=== PATIENT | female | born 1935 | race Caucasian/White ===

== ENCOUNTER 2023-08-23 07:36 | Observation (INO) | payer OTHER ==
[2023-08-23] MEDS ORDERED: MAGNESIUM SULFATE 1 gm IVPB 1 GM/100 ML BAG IV ONE (07:56)
[2023-08-23] MEDS ORDERED: GLUCAGON 1 MG/VIAL ONE ×2 (07:56→09:48)
[2023-08-23] MEDS ORDERED: METOCLOPRAMIDE 10 MG/2mL INJ ONE (07:56)
--- NOTE | 2023-08-23 10:55 | EDPHYS ---
Physician Documentation [facility] Name: Pau Wan Age: 87 yrs Sex: Female : 1935 Arrival Date: 08/23/2023 Time: 07:36 Bed 8 Private MD: ED Physician Allan Triana HPI: 08/22 10:51 This 87 yrs old Female presents to ER via Ambulatory with complaints of Foreign Body In rn Throat - food. 10:51 The patient or guardian reports the patient has a suspected foreign body, of the rn throat. The reported likely foreign body is Pork chop. Onset: The symptoms/episode began/occurred yesterday. Current symptoms: foreign body sensation. The patient has experienced a previous episode. Patient reports eating pork chop yesterday for lunch, felt stuck, has not been able to tolerate p.o. since then. Has happened to her once before and has had acid problems in the past. No difficulty breathing. No bleeding.. Historical: - Allergies: 08:03 Codeine; ld1 - PMHx: 08:13 Hypercholesterolemia; Hypertensive disorder; ld1 - Immunization history:: Adult Immunizations up to date. - Infectious Disease History:: Denies. - Social history:: Smoking status: Patient denies any tobacco usage or history of. - Family history:: not pertinent. - Hospitalizations: : No recent hospitalization is reported. ROS: 10:51 Constitutional: Negative for fever, chills, and weight loss, Eyes: Negative for injury, rn pain, redness, and discharge, ENT: Negative for injury, pain, and discharge, Cardiovascular: Negative for chest pain, palpitations, and edema, Respiratory: Negative for shortness of breath, cough, wheezing, and pleuritic chest pain, Abdomen/GI: Positive for esophageal foreign body sensation with vomiting and inability to tolerate p.o. Exam: 10:51 Constitutional: This is a well developed, well nourished patient who is awake, alert, rn and in no acute distress. ENT: No stridor Cardiovascular: Regular rate and rhythm. No pulse deficits. Respiratory: Speaking full sentences, unlabored. No increased work of breathing, no retractions or nasal flaring. Abdomen/GI: No abdominal tenderness Vital Signs: 08:12 BP 160 / 78; Pulse 90; Resp 18; Temp 97.9(TE); Pulse Ox 94% on R/A; Weight 72.57 kg; ld1 Height 5 ft. 4 in. ; Pain 0/10; 09:17 BP 130 / 66; Pulse 81; Resp 18; Pulse Ox 95% on R/A; ld1 10:45 Pulse 100; Resp 18; Pulse Ox 100% on R/A; ld1 08:12 Body Mass Index 27.46 (72.57 kg, 162.56 cm) ld1 08:12 Pain Scale: Adult ld1 MDM: 07:39 Patient medically screened. rn 10:51 Data reviewed: vital signs, nurses notes, and as a result, I will admit patient. rn Counseling: I had a detailed discussion with the patient and/or guardian regarding the historical points, exam findings, and any diagnostic results supporting the discharge/admit diagnosis, the need for outpatient follow up, to return to the emergency department if symptoms worsen or persist or if there are any questions or concerns that arise at home. Response to treatment: There is no appreciated change of the patient's symptoms at this time. ED course: Patient given multiple medications here and repeated a second round. No resolution of symptoms. Still unable to tolerate p.o. Simple sips of water after throwing up and will not go down. Will admit to hospitalist service for GI consultation and foreign body removal.. 08/22 11:12 Order name: CBC with Automated Diff [facility] 08/22 11:12 Order name: Comprehensive Metabolic Panel [facility] 08/22 11:12 Order name: Protime (+INR) [facility] 08/22 11:12 Order name: PTT, Activated Partial Thromb [facility] 08/22 11:12 Order name: CONS Physician Consult [facility] 08/22 07:54 Order name: IV Start; Complete Time: 08:11 rn 08/22 09:36 Order name: PO challenge; Complete Time: 09:43 rn Administered Medications: 08:11 Drug: Glucagon IVP 1 mg IVP once Route: IVP; Site: left antecubital; ld1 08:11 Drug: metoCLOPramide IVP 10 mg IVP once; over 1 to 2 minutes Route: IVP; Site: left ld1 antecubital; 08:11 Drug: Magnesium Sulfate IVPB 1 grams IVPB once over 1 hrs Route: IVPB; Infused Over: 1 ld1 hrs; Site: left antecubital; 09:51 Drug: Glucagon IVP 1 mg IVP once Route: IVP; Site: left antecubital; ld1 Disposition Summary: 08/23/23 10:55 Hospitalization Ordered Notes: Hospitalization Status: Observation rn Provider: Jossue Rodriguez rn Location: Telemetry/MedSurg (observation) rn Condition: Stable rn Problem: new rn Symptoms: are unchanged rn Bed/Room Type: Standard rn Room Assignment: 205(08/23/23 11:16) bd Diagnosis - Food in esophagus - with impaction rn Forms: - Medication Reconciliation Form rn - SBAR form rn - Leadership Thank You Letter rn Signatures: Dispatcher [employer] EDDeisi Collado Roman, MD MD rn Sims, Lauren, RN RN ld1 Corrections: (The following items were deleted from the chart) 11:16 10:55 rn bd
--- NOTE | 2023-08-23 10:55 | ER ---
Nurse's Notes [facility] Name: Pau Wan Age: 87 yrs Sex: Female : 1935 Arrival Date: 08/23/2023 Time: 07:36 Bed 8 Private MD: Diagnosis: Food in esophagus-with impaction Presentation: 08/22 08:02 Chief complaint: Patient states: Food caught in lower esophagus since this morning. Pt ld1 denies pain, c/o discomfort. Coronavirus screen: At this time, the client does not indicate any symptoms associated with coronavirus-19. Ebola Screen: No symptoms or risks identified at this time. Initial Sepsis Screen: Does the patient meet any 2 criteria? No. Patient's initial sepsis screen is negative. Does the patient have a suspected source of infection? No. Patient's initial sepsis screen is negative. Risk Assessment: Do you want to hurt yourself or someone else? Patient reports no desire to harm self or others. Onset of symptoms was August 23, 2023. 08:02 Method Of Arrival: Ambulatory ld1 08:02 Acuity: LOLA 2 ld1 Triage Assessment: 08:03 General: Appears in no apparent distress. uncomfortable, Behavior is calm, cooperative, ld1 appropriate for age. Pain: Denies pain. EENT: No signs and/or symptoms were reported regarding the EENT system. EENT: No signs and/or symptoms were reported regarding the EENT system. Reports food caught in esophagus since this morning.. Neuro: Level of Consciousness is awake, alert, obeys commands, Oriented to person, place, time, situation. Cardiovascular: Capillary refill < 3 seconds Patient's skin is warm and dry. Respiratory: Airway is patent Respiratory effort is even, unlabored. GI: Abdomen is round non-distended. : No signs and/or symptoms were reported regarding the genitourinary system. Derm: No signs and/or symptoms reported regarding the dermatologic system. Musculoskeletal: No signs and/or symptoms reported regarding the musculoskeletal system. Historical: - Allergies: 08:03 Codeine; ld1 - PMHx: 08:13 Hypercholesterolemia; Hypertensive disorder; ld1 - Immunization history:: Adult Immunizations up to date. - Infectious Disease History:: Denies. - Social history:: Smoking status: Patient denies any tobacco usage or history of. - Family history:: not pertinent. - Hospitalizations: : No recent hospitalization is reported. Screenin:04 [facility] ED Fall Risk Assessment (Adult) History of falling in the last 3 months, ld1 including since admission No falls in past 3 months (0 pts). Abuse screen: Denies threats or abuse. Denies injuries from another. Nutritional screening: No deficits noted. Tuberculosis screening: No symptoms or risk factors identified. Assessment: 08:04 Reassessment: See triage assessment. ld1 09:45 Reassessment: Pt attempted PO challenge - water still being coughed back up. Pt denies ld1 pain, c/o discomfort when eating or drinking fluids. ERP aware. See MAR for orders. 10:45 Reassessment: PO challenge completed. Pt did not pass PO challenge. Notified ERP. ld1 Patient denies pain at this time. Patient states symptoms have not improved. Vital Signs: 08:12 BP 160 / 78; Pulse 90; Resp 18; Temp 97.9(TE); Pulse Ox 94% on R/A; Weight 72.57 kg; ld1 Height 5 ft. 4 in. ; Pain 0/10; 09:17 BP 130 / 66; Pulse 81; Resp 18; Pulse Ox 95% on R/A; ld1 10:45 Pulse 100; Resp 18; Pulse Ox 100% on R/A; ld1 08:12 Body Mass Index 27.46 (72.57 kg, 162.56 cm) ld1 08:12 Pain Scale: Adult ld1 ED Course: 07:38 Patient arrived in ED. im 07:39 Allan Triana MD is Attending Physician. rn 08:03 Triage completed. ld1 08:03 Arm band placed on right wrist. ld1 08:04 Patient has correct armband on for positive identification. Placed in gown. Bed in low ld1 position. Call light in reach. Side rails up X2. playground monitor on. Pulse ox on. NIBP on. Door closed. Noise minimized. Warm blanket given. 08:04 No provider procedures requiring assistance completed. ld1 08:11 Mayra Gordon, JORGE LUIS is Primary Nurse. ld1 08:16 Inserted saline lock: 22 gauge in left antecubital area, using aseptic technique. sm8 08:16 Missed attempt(s): 22 gauge in right antecubital area. Bleeding controlled, band aid sm8 applied, catheter tip intact. 10:54 Jossue Rodriguez MD is Hospitalizing Provider. rn Administered Medications: 08:11 Drug: Glucagon IVP 1 mg IVP once Route: IVP; Site: left antecubital; ld1 08:11 Drug: metoCLOPramide IVP 10 mg IVP once; over 1 to 2 minutes Route: IVP; Site: left ld1 antecubital; 08:11 Drug: Magnesium Sulfate IVPB 1 grams IVPB once over 1 hrs Route: IVPB; Infused Over: 1 ld1 hrs; Site: left antecubital; 09:51 Drug: Glucagon IVP 1 mg IVP once Route: IVP; Site: left antecubital; ld1 Medication: 08:04 VIS not applicable for this client. ld1 Outcome: 10:55 Decision to Hospitalize by Provider. rn 11:55 Patient left the ED. ld1 Signatures: Allan Triana MD MD rn GordonMayra RN RN ld1 Noa Espino Scarlett sm8 Corrections: (The following items were deleted from the chart) 08:16 08:04 Inserted saline lock: 22 gauge in left antecubital area, using aseptic technique. sm8 ld1
[2023-08-23] MEDS ORDERED: ONDANSETRON 4 MG/2 ML VIAL IV PRN (11:08)
[2023-08-23] MEDS ORDERED: ACETAMINOPHEN 500 MG TAB PO PRN (11:08)
--- NOTE | 2023-08-23 11:43 | P.HP ---
Patient History Date of Service: 08/23/23 Assessment and Plan - Advance Directives Does patient have a Living Will: No Does patient have a Durable POA for Healthcare: No
[2023-08-23 12:03] VITALS: BMI 28.7
[2023-08-23 12:12] LABS: Absolute Basophils 0.1 K/uL (0-0.5); Absolute Eosinophils 0.1 K/uL (0-0.5); Absolute Lymphocytes (CBC) 1.2 K/uL (0.7-4.9); Absolute Monocytes 0.8 K/uL (0.1-1.3); Absolute Neutrophil 15.8 K/uL (1.8-8.0); Basophils % 0.3 % (0-1.3); Eosinophils % 0.3 % (0-4.4); Hematocrit 41.1 % (36.0-45.0); Hemoglobin 13.6 g/dL (12.0-15.0); Lymphocytes % 6.5 % (15.3-44.8); MCH 31.3 pg (27.0-35.0); MCHC 33.1 g/dL (32.0-36.0); MCV 94.6 fL (80-100); MPV 7.5 fL (7.6-11.3); Monocytes % 4.6 % (3.3-12.3); Neutrophils % 88.3 % (41.7-73.7); Nucleated Red Blood Cells % 0.1 % (0-0); Platelets 215 thou/uL (152-406); RBC Red Blood Cell Count 4.35 M/uL (3.86-4.86); Red Cell Distribution Width 13.9 % (12.1-15.2)
[2023-08-23] MEDS ORDERED: propofoL 200 MG/20 ML VIAL IV ONE ×3 (12:39→12:41)
[2023-08-23] MEDS ORDERED: Phenylephrine HCl 10 MG/ML 1 ML VIAL ONE (12:39)
[2023-08-23] MEDS ORDERED: LIDOCAINE 1% MPF 5 ML VIAL ONE (12:40)
[2023-08-23 12:51] LABS: Band Neutrophils 2 % (0-1); Differential Total Cells Count 100; Lymphocytes 5 % (15-42); Monocytes 3 % (0-10); Segmented Neutrophils 89 % (40-80)
[2023-08-23 12:52] LABS: Blood Morphology Comment NOT SEEN (NOT SEEN); Platelet Estimate ADEQ
[2023-08-23] MEDS: Ringers Lactate 1,000 ML IV ONE (13:24)
[2023-08-23] MEDS ORDERED: SODIUM CHLORIDE 0.9% 10ML INJ IV PRN (13:43)
--- NOTE | 2023-08-23 13:49 | P.HP ---
Certification for Inpatient Patient admitted to: Observation With expected LOS: <2 Midnights Patient will require the following post-hospital care: None Practitioner: I am a practitioner with admitting privileges, knowledge of patient current condition, hospital course, and medical plan of care. Services: Services provided to patient in accordance with Admission requirements found in Title 42 Section 412.3 of the Code of Federal Regulations Patient History Date of Service: 08/23/23 Reason for admission: Esophageal obstruction secondary to food bolus History of Present Illness: Patient is an 87-year-old female who developed an esophageal obstruction by a food impaction. Patient had pork chop and cabbage last night. Afterwards, patient states she was having a hard time swallowing the food all the way down. Whenever she drinks her liquids, she was having persistent nausea and vomiting. Whenever she swallowed her spit, she was having to cough up her spit. Patient denies any significant medical problems except for hypertension and dyslipidemia. Patient denies any cardiac disease. At this time patient will be admitted to the hospital with gastroenterology consultation. Patient will get an EGD with removal of the food impaction. Allergies codeine Adverse Reaction (Verified 08/23/23 13:23) Nausea/Vomiting Home Medications: Aspirin [Aspirin EC] 81 mg PO DAILY 08/23/23 Cholecalciferol (Vitamin D3) [Vitamin D 1000 Iu Tab*] 2,000 iu PO DAILY 08/23/23 Simvastatin 10 mg PO DAILY 08/23/23 hydroCHLOROthiazide [Hydrochlorothiazide] 25 mg PO DAILY 08/23/23 - Past Medical/Surgical History Has patient received pneumonia vaccine in the past: Yes -: Hypertension -: Dyslipidemia -: Cholecystectomy -: Hysterectomy -: Tonsillectomy -: Appenendectomy -: Colon sx - Family History Father Family History: Reviewed- Non-Contributory - Social History Smoking Status: Never smoker Alcohol use: No CD- Drugs: No Caffeine use: No Place of Residence: Home Review of Systems 10-point ROS is otherwise unremarkable Physical Examination - Vital Signs Temperature: 97.1 F Blood Pressure: 131/64 Pulse: 100 Respirations: 18 Pulse Ox (%): 98 - Physical Exam General: Alert, In no apparent distress, Oriented x3 HEENT: Atraumatic, PERRLA, Mucous membr. moist/pink, EOMI, Sclerae nonicteric Neck: Supple, 2+ carotid pulse no bruit, No LAD, Without JVD or thyroid abnormality Respiratory: Clear to auscultation bilaterally, Normal air movement Cardiovascular: Regular rate/rhythm, Normal S1 S2, No murmurs Gastrointestinal: Normal bowel sounds, Soft and benign, Non-distended, No tenderness Musculoskeletal: No clubbing, No swelling, No tenderness Integumentary: No rashes Neurological: Normal gait, Normal speech, Normal strength at 5/5 x4 extr, Normal tone, Sensation intact, Cranial nerves 3-12 intact, Normal affect Lymphatics: No axilla or inguinal lymphadenopathy Assessment & Plan - Problems (Diagnosis) (1) Esophageal obstruction due to food impaction Current Visit: Yes Status: Acute (2) Hypertension Current Visit: Yes Status: Acute (3) Dyslipidemia Current Visit: Yes Status: Acute - Plan Plan: 1. N.p.o. 2. GI consultation for EGD with removal of food impaction 3. IV hydration 4. PPI 5. Monitor hemodynamics 6. GI and DVT prophylaxis Discharge Plan: Home Plan to discharge in: 24 Hours - Advance Directives Does patient have a Living Will: No Does patient have a Durable POA for Healthcare: No - Code Status/Comfort Care Code Status Assessed: Yes Code Status: Full Code Critical Care: No Time Spent Managing PTS Care (In Minutes): 45
[2023-08-23 14:25] VITALS: O2SAT 96
[2023-08-23] MEDS: NA CHLORIDE 0.9% 1,000 ML IV SCH (14:54)
[2023-08-23 14:56] LABS: PT Prothrombin Time 11.9 SECONDS (9.5-12.5); PTT, Activated Partial Thromb 33.5 SECONDS (24.3-36.9); Protime INR 1.08
[2023-08-23 15:08] LABS: Albumin 3.6 g/dL (3.4-5.0); Albumin/Globulin Ratio 1.4 (1.1-1.8); Anion Gap 8.6 mEq/L (5.0-15.0); Bilirubin Total 0.7 mg/dL (0.2-1.0); Globulin 2.5 g/dL (2.3-3.5); Potassium 3.6 mEq/L (3.5-5.1); Protein, Total 6.1 g/dL (6.4-8.2)
[2023-08-23] MEDS: PANTOPRAZOLE 40 MG INJ IVP SCH (21:29)
--- NOTE | 2023-08-24 07:29 | P.PN ---
Subjective Date of Service: 08/24/23 Chief Complaint: Esophageal obstruction secondary to food bolus 87-year-old female who developed an esophageal obstruction by a food impaction. GI consult - Physical Exam General: Alert, In no apparent distress, Oriented x3 HEENT: Atraumatic, PERRLA, Mucous membr. moist/pink, EOMI, Sclerae nonicteric Neck: Supple, 2+ carotid pulse no bruit, No LAD, Without JVD or thyroid abnormality Respiratory: Clear to auscultation bilaterally, Normal air movement Cardiovascular: Regular rate/rhythm, Normal S1 S2, No murmurs Gastrointestinal: Normal bowel sounds, Soft and benign, Non-distended, No tenderness Musculoskeletal: No clubbing, No swelling, No tenderness Integumentary: No rashes Neurological: Normal gait, Normal speech, Normal strength at 5/5 x4 extr, Normal tone, Sensation intact, Cranial nerves 3-12 intact, Normal affect Lymphatics: No axilla or inguinal lymphadenopathy Review of Systems per HPI Physical Examination - Vital Signs Temperature: 99.2 F Blood Pressure: 120/56 Pulse: 85 Respirations: 15 Pulse Ox (%): 94 Assessment And Plan - Plan Assessment & Plan - Problems (Diagnosis) (1) Esophageal obstruction due to food impaction Current Visit: Yes Status: Acute (2) Hypertension Current Visit: Yes Status: Acute (3) Dyslipidemia Current Visit: Yes Status: Acute - Plan Plan: 1. N.p.o. 2. GI consultation for EGD with removal of food impaction 3. IV hydration 4. PPI 5. Monitor hemodynamics 6. GI and DVT prophylaxis Discharge Plan: Home Plan to discharge in: 24 Hours - Advance Directives Does patient have a Living Will: No Does patient have a Durable POA for Healthcare: No Discharge Plan: Home Critical Care: No Time Spent Managing PTS Care (In Minutes): 35
--- NOTE | 2023-08-24 07:34 | P.DS ---
Admission Date: 08/23/23 Discharge Date: 08/24/23 Disposition: ROUTINE DISCHARGE Discharge Condition: GOOD Reason for Admission: Esophageal obstruction secondary to food bolus Brief History of Present Illness: Patient is an 87-year-old female who developed an esophageal obstruction by a food impaction. Patient had pork chop and cabbage last night. Afterwards, patient states she was having a hard time swallowing the food all the way down. Whenever she drinks her liquids, she was having persistent nausea and vomiting. Whenever she swallowed her spit, she was having to cough up her spit. Patient denies any significant medical problems except for hypertension and dyslipidemia. Patient denies any cardiac disease. At this time patient will be admitted to the hospital with gastroenterology consultation. Patient will get an EGD with removal of the food impaction. - Physical Exam General: Alert, In no apparent distress, Oriented x3 HEENT: Atraumatic, PERRLA, Mucous membr. moist/pink, EOMI, Sclerae nonicteric Neck: Supple, 2+ carotid pulse no bruit, No LAD, Without JVD or thyroid abnormality Respiratory: Clear to auscultation bilaterally, Normal air movement Cardiovascular: Regular rate/rhythm, Normal S1 S2, No murmurs Gastrointestinal: Normal bowel sounds, Soft and benign, Non-distended, No tenderness Musculoskeletal: No clubbing, No swelling, No tenderness Integumentary: No rashes Neurological: Normal gait, Normal speech, Normal strength at 5/5 x4 extr, Normal tone, Sensation intact, Cranial nerves 3-12 intact, Normal affect Lymphatics: No axilla or inguinal lymphadenopathy Hospital Course: Patient is an 87-year-old female who developed an esophageal obstruction by a food impaction. Patient had pork chop and cabbage last night. Afterwards, patient states she was having a hard time swallowing the food all the way down. GI was consulted to evaluate patient, patient is alert and oriented x 3, no respiratory distress, no drooling, n.p.o., plan to discharge when cleared by gastroenterology, she is status post EGD for foreign body removal, esophageal dilation by Dr. Higgisn, Assessment plan Esophageal obstruction due to food impaction, GI consulted for EGD evaluation was treated with esophageal dilation, foreign body removal for EGD noted to have a hiatal hernia-instructed to eat soft foods, chew well, Follow-up with GI after discharge Incidental finding of hiatal hernia Continue home medicines as previously prescribed GOAL: Clear understanding of disease process INSTRUCTIONS: Physician Discharge Instructions: -Follow-up with PCP in 1 to 2 weeks -Please call Dr. Rodriguez at [phone] if any questions regarding hospital stay -Please call nursing station at [phone] if any nursing or medication questions -Return to the emergency room if symptoms worsen Diet: ADA, low sodium Activity: Fall precautions Vital Signs/Physical Exam: Temp Pulse Resp BP Pulse Ox 99.2 F 85 15 120/56 L 94 08/24/23 07:29 08/24/23 07:29 08/24/23 07:29 08/24/23 07:29 08/24/23 07:29 Laboratory Data at Discharge: WBC 17.90 thou/uL (4.3-10.9) H 08/23/23 12:02 Hgb 13.6 g/dL (12.0-15.0) 08/23/23 12:02 Hct 41.1 % (36.0-45.0) 08/23/23 12:02 Plt Count 215 thou/uL (152-406) 08/23/23 12:02 PT 11.9 SECONDS (9.5-12.5) 08/23/23 14:35 INR 1.08 08/23/23 14:35 APTT 33.5 SECONDS (24.3-36.9) 08/23/23 14:35 Sodium 141 mEq/L (136-145) 08/23/23 14:35 Potassium 3.6 mEq/L (3.5-5.1) 08/23/23 14:35 BUN 10 mg/dL (7-18) 08/23/23 14:35 Creatinine 0.60 mg/dL (0.55-1.02) 08/23/23 14:35 Glucose 92 mg/dL (74-106) 08/23/23 14:35 Total Bilirubin 0.7 mg/dL (0.2-1.0) 08/23/23 14:35 AST 14 U/L (15-37) L 08/23/23 14:35 ALT 23 U/L (13-56) 08/23/23 14:35 Alkaline Phosphatase 69 U/L (45-117) 08/23/23 14:35 Home Medications: Aspirin [Aspirin EC] 81 mg PO DAILY 08/23/23 Cholecalciferol (Vitamin D3) [Vitamin D 1000 Iu Tab*] 2,000 iu PO DAILY 08/23/23 Simvastatin 10 mg PO DAILY 08/23/23 hydroCHLOROthiazide [Hydrochlorothiazide] 25 mg PO DAILY 08/23/23 Diet: Soft diet Activity: Fall precautions Followup: Vance Pedro DO [Primary Care Provider] - Dallas Orourke MD [OUTSIDE PHYSICIAN] - Time spent managing pt's care (in minutes): 55
[2023-08-24 08:09] VITALS: BP 137/65; TEMP 98.6
== END 2023-08-24 09:59 | disposition home or self-care (01) ==
LOC: ER 07:36 → 2ND 11:08
PROVIDERS: ADMIT Hospitalist; ATTEND Hospitalist
PROC: 0DB38ZX Excision of Lower Esophagus, Via Natural or Artificial Opening Endoscopic, Diagnostic (ICD-10-PCS; 2023-08-23)
PROC: 0DB78ZX Excision of Stomach, Pylorus, Via Natural or Artificial Opening Endoscopic, Diagnostic (ICD-10-PCS; 2023-08-23)
PROC: 0DC28ZZ Extirpation of Matter from Middle Esophagus, Via Natural or Artificial Opening Endoscopic (ICD-10-PCS; principal; 2023-08-23 13:30)
DX: T18.128A Food in esophagus causing other injury, initial encounter (principal); I10 Essential (primary) hypertension; E78.5 Hyperlipidemia, unspecified; K44.9 Diaphragmatic hernia without obstruction or gangrene; K22.10 Ulcer of esophagus without bleeding; K29.50 Unspecified chronic gastritis without bleeding; E78.00 Pure hypercholesterolemia, unspecified
CPT/HCPCS: 85025; 36415; 88312; 85610; 88305; 85730; 80053; 96375; 96374; 99284; 43247; 43239; J1610 ×2; J3475; J2704 ×2; J2765; J2001; C9113 ×2; G0378 ×4; J7120; J7030; C1726; J2371

== ENCOUNTER 2024-01-15 16:41 | Inpatient (IN) | payer OTHER ==
[2024-01-15] MEDS ORDERED: ONDANSETRON 4 MG/2 ML VIAL ONE (18:28)
[2024-01-15] MEDS ORDERED: FAMOTIDINE 20 MG/2 ML VIAL IV ONE (18:28)
--- NOTE | 2024-01-15 18:44 | RAD REPORT ---
Procedure: Chest Single View HISTORY: Chest pain COMPARISON: none FINDINGS: The lungs appear clear of acute infiltrate. No significant pleural effusion noted. The heart is normal size. IMPRESSION: No acute abnormality is displayed.
[2024-01-15 18:48] LABS: Absolute Basophils 0.1 K/uL (0-0.5); Absolute Lymphocytes (CBC) 0.7 K/uL (0.7-4.9); Absolute Monocytes 0.7 K/uL (0.1-1.3); Absolute Neutrophil 13.3 K/uL (1.8-8.0); Basophils % 0.4 % (0-1.3); Eosinophils % 0.1 % (0-4.4); Hematocrit 38.7 % (36.0-45.0); Lymphocytes % 4.4 % (15.3-44.8); MCHC 33.7 g/dL (32.0-36.0); MCV 91.9 fL (80-100); MPV 6.6 fL (7.6-11.3); Monocytes % 4.9 % (3.3-12.3); Neutrophils % 90.2 % (41.7-73.7); Platelets 279 thou/uL (152-406); RBC Red Blood Cell Count 4.21 M/uL (3.86-4.86); Red Cell Distribution Width 13.4 % (12.1-15.2)
[2024-01-15 19:03] LABS: Specific Gravity 1.019 (1.005-1.030); Sqamous Epithelial None Seen /HPF (None Seen); Urine Bacteria None Seen /HPF (<20); Urine Bilirubin NEGATIVE (Negative); Urine Blood 3+ (Negative); Urine Clarity Extremely Turbid (Clear); Urine Color Light-Yellow (Yellow); Urine Crystals Unidentified Few /HPF (None Seen); Urine Culture Reflex Order REFLEXED; Urine Glucose NEGATIVE (Negative); Urine Ketones 2+ (Negative); Urine Microscopic Reflex YN ORDER UMIC; Urine Mucus Slight /HPF (None Seen); Urine Nitrite NEGATIVE (Negative); Urine Protein 1+ (Negative); Urine RBC >50 /HPF (None Seen); Urine Urobilinogen Normal (Normal); Urine WBC >50 /HPF (<5); Urine WBC Clump Rare /HPF (None Seen); Urine Yeast (Budding) Few /HPF (None Seen)
[2024-01-15 19:12] LABS: Albumin 3.6 g/dL (3.4-5.0); Albumin/Globulin Ratio 1.2 (1.1-1.8); Anion Gap 11.5 mEq/L (5.0-15.0); Bilirubin Direct 0.2 mg/dL (0-0.2); Bilirubin Indirect, Calculated 0.7 mg/dL (0.2-0.8); Bilirubin Total 0.9 mg/dL (0.2-1.0); Globulin 2.9 g/dL (2.3-3.5); Magnesium 1.9 mg/dL (1.6-2.4); Potassium 3.5 mEq/L (3.5-5.1); Protein, Total 6.5 g/dL (6.4-8.2); Troponin High Sensitivity 4.1 pg/mL (<58.9)
--- NOTE | 2024-01-15 20:02 | RAD REPORT ---
EXAMINATION: CT ABDOMEN AND PELVIS WITH CONTRAST CLINICAL INDICATION: Abdominal pain TECHNIQUE: CT abdomen and pelvis was performed, after the administration of 100 cc Isovue-300.. Sagit ivone and coronal reconstructions were obtained. One or more of the following dose reduction techniques were used: Automated exposure control, adjustment of the mA and kV according to patient si ze, and iterative reconstruction. Unless otherwise specified, incidental findings do not require dedicated imaging follow-up. [id number]. Oral contrast was not given which limits evaluation of bowel and appendix. COMPARISON: none FINDINGS: Mild fatty infiltration. Cholecystectomy. Small hiatal hernia. Thickening of the wall of the distal esophagus. The spleen, pancreas, adrenals and kidneys unremarkable Hysterectomy. No adnexal mass. Small supra umbilical hernia contains fat. Right inguinal hernia contains small bowel. Diverticula stem from the colon. No evidence of diverticulitis.: IMPRESSION: Thickening of the wall of the esophagus may indicate inflammation. Right inguinal hernia contains nondilated small bowel
--- NOTE | 2024-01-15 20:29 | ER ---
Nurse's Notes [facility] Name: Pau Wan Age: 88 yrs Sex: Female : 1935 Arrival Date: 01/15/2024 Time: 16:41 Bed 18 Private MD: Diagnosis: UTI/ Urinary tract infection, site not specified;Nausea with vomiting, unspecified;Hypo-osmolality and hyponatremia Presentation: 01/14 17:12 Chief complaint: Patient states: "I went to my doctor and they said I have a UTI but aa5 I've been vomiting now and I can't keep anything down". 17:12 Coronavirus screen: vomiting. Ebola Screen: Patient denies travel to an Ebola-affected [facility] area in the 21 days before illness onset. Initial Sepsis Screen: Does the patient meet any 2 criteria? No. Patient's initial sepsis screen is negative. Does the patient have a suspected source of infection? No. Patient's initial sepsis screen is negative. Risk Assessment: Do you want to hurt yourself or someone else? Patient reports no desire to harm self or others. Onset of symptoms was January 15, 2024. 17:12 Acuity: LOLA 3 aa5 17:12 Method Of Arrival: Ambulatory aa5 Triage Assessment: 18:52 General: Appears in no apparent distress. comfortable, Behavior is calm, cooperative. cm10 Pain: Denies pain. Neuro: No deficits noted. Level of Consciousness is awake, alert, obeys commands, Oriented to person, place, time, situation, Appropriate for age. Respiratory: No deficits noted. Airway is patent Respiratory effort is even, unlabored, Respiratory pattern is regular, symmetrical. GI: Reports nausea, vomiting. Historical: - Allergies: 17:12 Codeine; aa5 - PMHx: 17:12 Hypercholesterolemia; Hypertensive disorder; aa5 - Immunization history:: Adult Immunizations unknown. - Infectious Disease History:: Denies. - Social history:: Smoking status: Patient denies any tobacco usage or history of. Screenin:53 [facility] ED Fall Risk Assessment (Adult) History of falling in the last 3 months, cm10 including since admission No falls in past 3 months (0 pts) Confusion or Disorientation No (0 pts) Intoxicated or Sedated No (0 pts) Impaired Gait No (0 pts) Mobility Assist Device Used No (0 pt) Altered Elimination No (0 pt) Score/Fall Risk Level 0 - 2 = Low Risk Oriented to surroundings, Maintained a safe environment, Hourly rounding (assess needs \\T\\ fall precautionary measures) done. Abuse screen: Denies threats or abuse. Denies injuries from another. Nutritional screening: No deficits noted. Tuberculosis screening: No symptoms or risk factors identified. Vital Signs: 17:12 BP 165 / 83; Pulse 87; Resp 20 S; Temp 97.5(TE); Pulse Ox 95% on R/A; Weight 72.57 kg aa5 (R); Height 5 ft. 2 in. (R); 19:00 BP 145 / 66; Pulse 64; Resp 18; Pulse Ox 97% ; cp4 20:00 BP 140 / 69; Pulse 69; Resp 18; Pulse Ox 96% ; cp4 21:40 BP 149 / 67; Pulse 68; Resp 18; Pulse Ox 98% ; cp4 17:12 Body Mass Index 29.26 (72.57 kg, 157.48 cm) aa5 ED Course: 16:43 Patient arrived in ED. ra3 17:05 Adelso Cooney PA is PHCP. cp 17:05 Adelso Davis MD is Attending Physician. cp 17:12 Arm band placed on. aa5 17:14 Triage completed. aa5 18:21 Padmini Regalado, RN is Primary Nurse. cm10 18:26 XRAY Chest (1 view) In Process Unspecified. EDMS 18:43 Urinalysis w/ reflexes Sent. cm10 18:43 Lipase Sent. cm10 18:43 Basic Metabolic Panel Sent. cm10 18:43 CBC with Diff Sent. cm10 18:43 LFT's Sent. cm10 18:43 Magnesium Sent. cm10 18:43 Troponin HS Sent. cm10 18:43 Initial lab(s) drawn, by ri, sent to lab. Urine collected: clean catch specimen, cm10 cloudy, EKG done, by ED staff, reviewed by Adelso WINTERS. Inserted saline lock: 20 gauge in right antecubital area, using aseptic technique. Blood collected. Flushed with 10 mL NS. 18:53 Patient has correct armband on for positive identification. Placed in gown. Bed in low cm10 position. Call light in reach. Side rails up X2. Client placed on continuous cardiac and pulse oximetry monitoring. NIBP monitoring applied. dealer analyst on. 19:33 CT Abd/Pelvis - IV Contrast Only In Process Unspecified. EDMS 20:28 Price Melendez MD is Hospitalizing Provider. cp 20:47 First set of blood cultures drawn by me. cp4 21:10 Second set of blood cultures drawn by me. cp4 22:17 No provider procedures requiring assistance completed. Patient admitted, IV remains in cp4 place. 22:18 Provided Education on: admission. cp4 Administered Medications: 18:43 Drug: Ondansetron IVP 4 mg IVP once; over 2 minutes Route: IVP; Site: right antecubital;cm10 21:48 Follow up: Response: No adverse reaction cp4 18:43 Drug: Famotidine IVP 20 mg IVP once; dilute with 10 mL 0.9% NaCl; give over 2 minutes cm10 Route: IVP; Site: right antecubital; 21:48 Follow up: Response: No adverse reaction cp4 21:48 Drug: NS 0.9% IV 500 ml 500 ml IV at 1 bolus once; to be given as a bolus over 30 cp4 minutes Volume: 500 ml; Route: IV; Rate: 1 bolus; Site: right antecubital; 22:47 Follow up: Response: No adverse reaction; IV Status: Completed infusion cp4 21:48 Drug: Rocephin IV 1 grams IV at calculated rate once; Given slow IV push per pharmacy cp4 instructions Route: IV; Rate: calculated rate; Site: right antecubital; 21:58 Follow up: IV Status: Completed infusion cp4 Medication: 22:18 VIS not applicable for this client. cp4 Outcome: 20:29 Decision to Hospitalize by Provider. cp 22:47 Admitted to Med/surg accompanied by tech, via wheelchair, with chart, cp4 22:47 Condition: stable 22:47 Instructed on the need for admit, 22:48 Patient left the ED. cp4 Signatures: Dispatcher [employer] EDIN Laury Barbre RN RN aa5 Adelso Cooney PA PA Padmini Valladares RN RN cm10 Shirin Sampson cp4 Julianne Hardy ra3 Corrections: (The following items were deleted from the chart) 17:15 17:12 BP 165 / 83; Pulse 87bpm; Resp 20bpm; Spontaneous; Pulse Ox 95% RA; aa5 aa5
--- NOTE | 2024-01-15 20:29 | EDPHYS ---
Physician Documentation [facility] Name: Pau Wan Age: 88 yrs Sex: Female : 1935 Arrival Date: 01/15/2024 Time: 16:41 Bed 18 Private MD: ED Physician Adelso Davis HPI: 01/14 17:15 This 88 yrs old Female presents to ER via Ambulatory with complaints of Vomiting. cp 17:15 The patient presents to the emergency department with vomiting, that is continuous, cp described as bilious, abdominal pain. 17:15 Onset: The symptoms/episode began/occurred today. Possible causes: diagnosed with uti cp and office of pcp today. Associated signs and symptoms: Pertinent negatives: diarrhea, fever, GI bleeding. Severity of symptoms: in the emergency department the symptoms are unchanged despite home interventions. Historical: - Allergies: 17:12 Codeine; aa5 - PMHx: 17:12 Hypercholesterolemia; Hypertensive disorder; aa5 - Immunization history:: Adult Immunizations unknown. - Infectious Disease History:: Denies. - Social history:: Smoking status: Patient denies any tobacco usage or history of. ROS: 17:20 Constitutional: Negative for body aches, chills, fever, cp 17:20 Eyes: Negative for injury, pain, redness, and discharge, cp 17:20 Cardiovascular: Negative for chest pain, palpitations, 17:20 Respiratory: Negative for cough, shortness of breath, wheezing, 17:20 Abdomen/GI: Positive for abdominal pain, nausea, vomiting, Negative for diarrhea, constipation, hematemesis, black/tarry stool, rectal bleeding, 17:20 Back: Negative for pain at rest, pain with movement, 17:20 Neuro: Negative for altered mental status, dizziness, headache, numbness, weakness, 17:20 All other systems are negative, Exam: 17:25 Constitutional: The patient appears in no acute distress, alert, awake, cp non-diaphoretic, non-toxic, well developed, well nourished, uncomfortable, 17:25 Head/Face: Normocephalic, atraumatic. cp 17:25 Eyes: Periorbital structures: appear normal, Conjunctiva: normal, no exudate, no injection, Sclera: no appreciated abnormality, Lids and lashes: appear normal, bilaterally, 17:25 ENT: External ear(s): are unremarkable, Nose: is normal, Mouth: Lips: moist, Oral mucosa: pink and intact, moist, Posterior pharynx: is normal, airway is patent, no erythema, no exudate, 17:25 Chest/axilla: Inspection: normal, Palpation: is normal, no crepitus, no tenderness, 17:25 Cardiovascular: Rate: normal, Rhythm: regular, Edema: is not appreciated, 17:25 Respiratory: the patient does not display signs of respiratory distress, Respirations: normal, no use of accessory muscles, no retractions, labored breathing, is not present, Breath sounds: are clear throughout, no decreased breath sounds, no stridor, no wheezing, 17:25 Abdomen/GI: Inspection: abdomen appears normal, Bowel sounds: active, all quadrants, Palpation: soft, in all quadrants, mild abdominal tenderness, in the epigastric area, right upper quadrant and left upper quadrant, rebound tenderness, is not appreciated, involuntary guarding, is not appreciated, 17:25 Back: CVA tenderness, is absent, 17:25 Neuro: Orientation: to person, place \T\ time. Mentation: is normal, Motor: moves all fours, strength is normal, 18:47 ECG was reviewed by the Attending Physician. Vital Signs: 17:12 BP 165 / 83; Pulse 87; Resp 20 S; Temp 97.5(TE); Pulse Ox 95% on R/A; Weight 72.57 kg aa5 (R); Height 5 ft. 2 in. (R); 19:00 BP 145 / 66; Pulse 64; Resp 18; Pulse Ox 97% ; cp4 20:00 BP 140 / 69; Pulse 69; Resp 18; Pulse Ox 96% ; cp4 21:40 BP 149 / 67; Pulse 68; Resp 18; Pulse Ox 98% ; cp4 17:12 Body Mass Index 29.26 (72.57 kg, 157.48 cm) aa5 MDM: 18:05 Medical Screening Exam initiated joni 20:33 Data reviewed: vital signs, nurses notes, lab test result(s), EKG, radiologic studies, cp CT scan, and as a result, I will admit patient. 20:33 Differential diagnosis: gastritis, cholecystitis, appendicitis, diverticulitis, viral cp gastroenteritis, gastroenteritis, sepsis. Management of patient was discussed with the following: Hospitalist: DR Melendez will admit after discussion. I considered the following discharge prescriptions or medication management in the emergency department Medications were administered in the Emergency Department. See MAR. Independent interpretation of the following test(s) in the Emergency Department EKG: See my EKG interpretation above. Care significantly affected by the following chronic conditions: Hypertension. Counseling: I had a detailed discussion with the patient and/or guardian regarding the historical points, exam findings, and any diagnostic results supporting the discharge/admit diagnosis, lab results, radiology results. Response to treatment: the patient's symptoms have mildly improved after treatment. 01/14 17:13 Order name: Basic Metabolic Panel; Complete Time: 20:10 01/14 20:10 Interpretation: Normal except: NA 127; CL 95; GLUC 129; BUN 6; GFR 82. 01/14 17:13 Order name: CBC with Diff; Complete Time: 18:57 01/14 17:13 Order name: LFT's; Complete Time: 20:10 01/14 17:13 Order name: Magnesium; Complete Time: 20:10 01/14 17:13 Order name: Troponin HS; Complete Time: 20:10 01/14 17:13 Order name: Lipase; Complete Time: 20:10 01/14 18:13 Order name: Urinalysis w/ reflexes; Complete Time: 20:10 01/14 20:11 Interpretation: Normal except: [facility] Extremely Turbid; UKET 2+; UBLD 3+; UPROT 1+; UESTR cp 250; UWBC >50; URBC >50; BYST Few. 01/14 19:09 Order name: Urine Culture EDMT 01/14 20:17 Order name: Lactate w/ 2H reflex if indic. 01/14 20:17 Order name: Blood Culture Adult (2) 01/14 20:54 Order name: Urinalysis w/ reflexes EDMT 01/14 20:54 Order name: CBC with Automated Diff EDMT 01/14 20:54 Order name: CBC with Automated Diff EDMT 01/14 20:54 Order name: Comprehensive Metabolic Panel EDMT 01/14 20:54 Order name: Comprehensive Metabolic Panel [facility] 01/14 17:13 Order name: XRAY Chest (1 view); Complete Time: 18:57 01/14 18:58 Order name: CT Abd/Pelvis - IV Contrast Only; Complete Time: 20:10 cp 01/14 20:11 Interpretation: Report reviewed. cp 01/14 17:13 Order name: EKG; Complete Time: 17:13 cp 01/14 17:13 Order name: Cardiac monitoring; Complete Time: 18:43 cp 01/14 17:13 Order name: EKG - Nurse/Tech; Complete Time: 18:43 cp 01/14 17:13 Order name: IV Saline Lock; Complete Time: 18:43 cp 01/14 17:13 Order name: Labs collected and sent; Complete Time: 18:43 cp 01/14 17:13 Order name: O2 Per Protocol; Complete Time: 18:43 cp 01/14 17:13 Order name: O2 Sat Monitoring; Complete Time: 18:43 cp EC:47 Rate is 68 beats/min. Rhythm is regular. MN interval is normal. QRS interval is cp prolonged at 140 msec. QT interval is normal. T waves are Inverted in lead aVR. Interpreted by me. Reviewed by me. Administered Medications: 18:43 Drug: Ondansetron IVP 4 mg IVP once; over 2 minutes Route: IVP; Site: right antecubital;cm10 21:48 Follow up: Response: No adverse reaction cp4 18:43 Drug: Famotidine IVP 20 mg IVP once; dilute with 10 mL 0.9% NaCl; give over 2 minutes cm10 Route: IVP; Site: right antecubital; 21:48 Follow up: Response: No adverse reaction cp4 21:48 Drug: NS 0.9% IV 500 ml 500 ml IV at 1 bolus once; to be given as a bolus over 30 cp4 minutes Volume: 500 ml; Route: IV; Rate: 1 bolus; Site: right antecubital; 22:47 Follow up: Response: No adverse reaction; IV Status: Completed infusion cp4 21:48 Drug: Rocephin IV 1 grams IV at calculated rate once; Given slow IV push per pharmacy cp4 instructions Route: IV; Rate: calculated rate; Site: right antecubital; 21:58 Follow up: IV Status: Completed infusion cp4 Disposition Summary: 01/15/24 20:29 Hospitalization Ordered Notes: Hospitalization Status: Inpatient Admission cp Provider: Price Melendez cp Location: Telemetry/[facility] (Inpatient) cp Condition: Stable cp Problem: new cp Symptoms: have improved cp Bed/Room Type: Standard cp Room Assignment: 431(01/15/24 21:47) kl Diagnosis - UTI/ Urinary tract infection, site not specified cp - Nausea with vomiting, unspecified cp - Hypo-osmolality and hyponatremia cp Forms: - Medication Reconciliation Form cp - SBAR form cp - Leadership Thank You Letter cp Signatures: Dispatcher [employer] EDDenise Jennings RN RN Adelso Gutierrez MD MD cha Calderon, Audri RN RN aa5 Adelso Cooney PA PA Padmini Valladares RN RN cm10 Shirin Sampson cp4 Ekaterina Flores Corrections: (The following items were deleted from the chart) 18:58 18:58 Abdomen Pelvis W Con+CT.RAD.BRZ ordered. EDMS EDMS 21:00 20:29 cp vk 21:47 21:00 [facility]
[2024-01-15] MEDS ORDERED: ACETAMINOPHEN 325 MG TABLET PO PRN (20:49)
--- NOTE | 2024-01-15 20:54 | P.HP ---
Certification for Inpatient Patient admitted to: Inpatient With expected LOS: >2 Midnights Practitioner: I am a practitioner with admitting privileges, knowledge of patient current condition, hospital course, and medical plan of care. Services: Services provided to patient in accordance with Admission requirements found in Title 42 Section 412.3 of the Code of Federal Regulations Patient History Date of Service: 01/15/24 Reason for admission: Intractable nausea History of Present Illness: 88 yo Female with past medical history of hypertension, hyperlipidemia who was brought to ER with intractable nausea vomiting. Associated with dysuria and frequency of micturition. Patient was seen by the PCP and was diagnosed with a UTI. But the patient had intractable nausea vomiting and was not tolerating anything by p.o. and was brought to ER. Patient was assessed in the ER and was admitted for hyponatremia and dehydration and UTI. Allergies codeine Adverse Reaction (Verified 08/23/23 13:23) Nausea/Vomiting Home medications list reviewed: Yes Home Medications: Aspirin [Aspirin EC] 81 mg PO DAILY 08/23/23 Cholecalciferol (Vitamin D3) [Vitamin D 1000 Iu Tab*] 2,000 iu PO DAILY 08/23/23 Simvastatin 10 mg PO DAILY 08/23/23 hydroCHLOROthiazide [Hydrochlorothiazide] 25 mg PO DAILY 08/23/23 - Past Medical/Surgical History Past Medical History: Reviewed- Non-Contributory -: Hypertension -: Dyslipidemia Past Surgical History: Reviewed- Non-Contributory -: Cholecystectomy -: Hysterectomy -: Tonsillectomy -: Appenendectomy -: Colon sx - Family History Family History: Reviewed- Non-Contributory - Family History Father -: Heart disease Notes: Bypasses - Social History Smoking Status: Never smoker Alcohol use: No CD- Drugs: No Caffeine use: No Review of Systems 10-point ROS is otherwise unremarkable Physical Examination - Vital Signs Temperature: 97.2 F Blood Pressure: 128/67 Pulse: 79 Respirations: 18 Pulse Ox (%): 94 - Physical Exam General: Alert, In no apparent distress, Oriented x3 HEENT: Atraumatic, Normocephalic Neck: Supple, No Thyromegaly Respiratory: Clear to auscultation bilaterally, Normal air movement Cardiovascular: Regular rate/rhythm, Normal S1 S2 Capillary refill: <2 Seconds Gastrointestinal: Soft and benign, Non-distended Musculoskeletal: No clubbing, No swelling Integumentary: No rashes, No breakdown Neurological: Normal speech, Normal strength at 5/5 x4 extr, Cranial nerves 3-12 intact, Normal affect Lymphatics: No axilla or inguinal lymphadenopathy - Studies Laboratory Data (last 24 hrs) 01/15/24 01/15/24 18:41 18:41 WBC 14.70 H Hgb 13.0 Hct 38.7 Plt Count 279 Sodium 127 L Potassium 3.5 BUN 6 L Creatinine 0.71 Glucose 129 H Magnesium 1.9 Total Bilirubin 0.9 AST 19 ALT 23 Alkaline Phosphatase 67 Lipase 30 Assessment and Plan - Problems (Diagnosis) (1) Intractable nausea and vomiting Current Visit: Yes Status: Acute (2) UTI (urinary tract infection) Current Visit: Yes Status: Acute Plan: Hyponatremia Monitor neuro vital signs IV hydration Possibly induced by vomiting Monitor electrolytes and replace accordingly Intractable nausea and vomiting Started on Zofran Monitor closely on telemetry UTI Started on Rocephin Will obtain urine culture Change antibiotic as per sensitivity Hypertension Antihypertensives titrated Continue home medications and titrate as needed Hyperlipidemia Continue statin GI/DVT prophylaxis Advanced directive full code (3) Hyponatremia Current Visit: Yes Status: Acute Discharge Plan: Home Plan to discharge in: 48 Hours - Advance Directives Does patient have a Living Will: No Does patient have a Durable POA for Healthcare: No - Code Status/Comfort Care Code Status: Do Not Attempt Resuscitat Time Spent Managing Pts Care (In Minutes): 48
[2024-01-15] MEDS ORDERED: CEFTRIAXONE 1000 MG/VIAL ONE (21:43)
[2024-01-15] MEDS ORDERED: NA CHLORIDE 0.9% 500 ML ONE (21:43)
[2024-01-15 22:36] VITALS: BMI 29.8
[2024-01-15] MEDS: NA CHLORIDE 0.9% 1,000 ML IV SCH (23:02)
[2024-01-16] MEDS ORDERED: ONDANSETRON 4 MG/2 ML VIAL IV PRN (00:30)
[2024-01-16 06:22] LABS: Absolute Basophils 0.1 K/uL (0-0.5); Absolute Eosinophils 0.1 K/uL (0-0.5); Absolute Lymphocytes (CBC) 0.7 K/uL (0.7-4.9); Absolute Monocytes 0.8 K/uL (0.1-1.3); Absolute Neutrophil 7.5 K/uL (1.8-8.0); Basophils % 0.6 % (0-1.3); Hemoglobin 12.2 g/dL (12.0-15.0); Lymphocytes % 7.8 % (15.3-44.8); MCH 32.2 pg (27.0-35.0); MCHC 34.9 g/dL (32.0-36.0); MCV 92.3 fL (80-100); MPV 6.6 fL (7.6-11.3); Monocytes % 8.5 % (3.3-12.3); Neutrophils % 82.1 % (41.7-73.7); Nucleated Red Blood Cells % 0.1 % (0-0); Platelets 279 thou/uL (152-406); RBC Red Blood Cell Count 3.79 M/uL (3.86-4.86); Red Cell Distribution Width 13.7 % (12.1-15.2)
[2024-01-16 06:39] LABS: Albumin 3.1 g/dL (3.4-5.0); Albumin/Globulin Ratio 1.2 (1.1-1.8); Anion Gap 7.4 mEq/L (5.0-15.0); Bilirubin Total 0.6 mg/dL (0.2-1.0); Globulin 2.5 g/dL (2.3-3.5); Phosphorus 2.8 mg/dL (2.5-4.9); Potassium 3.4 mEq/L (3.5-5.1); Protein, Total 5.6 g/dL (6.4-8.2)
[2024-01-16] MEDS: CEFTRIAXONE 1,000 MG in NA CHLORIDE 0.9% 50 ML IVPB SCH (08:09)
[2024-01-16] MEDS: hydroCHLOROthiazide 25 MG TAB PO SCH (08:10)
[2024-01-16] MEDS: VITAMIN D 1000 UNIT TAB PO SCH (08:10)
[2024-01-16] MEDS: ASPIRIN EC 81 MG TAB PO SCH (08:10)
[2024-01-16] MEDS: ATORVASTATIN 10 MG TAB PO SCH (08:10)
[2024-01-16] MEDS: POTASSIUM CL SA 10 MEQ TAB PO ONE (08:10)
--- NOTE | 2024-01-16 09:59 | P.PN ---
Date of Service: 01/16/24 Subjective: feeling significantly better today feels some mild pain when urinating nausea/vomiting improved overnight tolerating breakfast without issues afebrile ROS: 10 point ROS as noted above, otherwise negative Physical Exam: GEN: Alert, oriented, NAD CV: Regular rate and rhythm, no edema Pulm: Nonlabored respirations on room air, clear bilaterally ABD: soft, mild suprapubic tenderness, nondistended Problem List: Presumed UTI Intractable nausea/vomiting, improved Hypertension Hyperlipidemia Hyponatremia Presumed UTI Intractable nausea/vomiting, improved on admission, presents with intractable nausea/vomiting, dysuria and frequency. nausea/vomiting improved Was seen at her PCP office and was told she had a UTI CT abdomen (01/14): esophageal thickening. Right inguinal hernia containing small bowel urine cx (01/14): prelim 3+ GNR continue empiric rocephin (01/15-) follow urine culture PRN zofran Hypertension Hyperlipidemia resume home statin, HCTZ Hyponatremia likely secondary from vomiting Monitor electrolytes and replete as needed daily labs VTE: SCD Code: DNR Dispo: Home, ~1-2 days pending cultures Time Spent Managing Pts Care (In Minutes): 51
--- NOTE | 2024-01-16 12:19 | EKG ---
Test Date: 2024-01-15 Test Time: 18:41:21 Apn: [facility] MEASUREMENT RESULTS: Intervals: Rate: 68 ID: [id number] QRSD: 140 QT: 474 QTc: 504 [place]: P: 63 ID: [id number] QRS: 76 T: 26 INTERPRETIVE STATEMENTS: Normal sinus rhythm Right bundle branch block Abnormal ECG No previous ECG available for comparison Electronically Signed On 01-16-24 12:16:32 [employer] by Fredrick Loera
[2024-01-17 07:05] LABS: Absolute Eosinophils 0.2 K/uL (0-0.5); Absolute Lymphocytes (CBC) 1.1 K/uL (0.7-4.9); Absolute Monocytes 0.6 K/uL (0.1-1.3); Absolute Neutrophil 4.1 K/uL (1.8-8.0); Basophils % 0.8 % (0-1.3); Hematocrit 36.3 % (36.0-45.0); Hemoglobin 11.9 g/dL (12.0-15.0); Lymphocytes % 17.5 % (15.3-44.8); MCH 30.9 pg (27.0-35.0); MCHC 32.8 g/dL (32.0-36.0); MCV 94.1 fL (80-100); MPV 7.5 fL (7.6-11.3); Monocytes % 10.5 % (3.3-12.3); Neutrophils % 67.2 % (41.7-73.7); Platelets 263 thou/uL (152-406); RBC Red Blood Cell Count 3.86 M/uL (3.86-4.86); Red Cell Distribution Width 13.6 % (12.1-15.2)
[2024-01-17 07:22] LABS: Anion Gap 6.5 mEq/L (5.0-15.0); Magnesium 2.1 mg/dL (1.6-2.4); Potassium 3.5 mEq/L (3.5-5.1)
--- NOTE | 2024-01-17 08:09 | P.DS ---
Admission Date: 01/15/24 Discharge Date: 01/17/24 Disposition: ROUTINE DISCHARGE Discharge Condition: GOOD Reason for Admission: Intractable nausea Brief History of Present Illness: 88yo F, PMH: hypertension, hyperlipidemia Patient was brought to ER with intractable nausea vomiting. Associated with dysuria and frequency of micturition. Patient was seen by the PCP and was diagnosed with a UTI. But the patient had intractable nausea vomiting and was not tolerating anything by p.o. and was brought to ER. Patient was assessed in the ER and was admitted for hyponatremia and dehydration and UTI. Hospital Course: Problem List: UTI - E. coli; POA Intractable nausea/vomiting, improved Hypertension Hyperlipidemia Hyponatremia Physician discharge instructions: Patient presents with intractable nausea/vomiting, dysuria and urinary frequency secondary to UTI. She reports being seen in office prior to admission and was told she was diagnosed with a UTI. CT abdomen noted some distal esophageal wall thickening, right inguinal hernia otherwise negative. Urine culture grew near rondon-sensitive E. coli only resistant to Ampicillin/Bactrim. Intermediate resistance to ancef. She received 2 days of IV rocephin while hospitalized and had improvement of her symptoms. Patient is to complete 5 more days of oral cefpodoxime on discharge for a total of 1 week antibiotic course. Nausea/vomiting self-resolved shortly after admission. Patient was able to tolerate diet without issues on day of discharge. Patient was feeling better, nausea/vomiting resolved, urinary symptoms improved, afebrile > 24 hours and was deemed stable for discharge. Medications: Cefpodoxime twice daily for 5 days (start 01/17 morning) Continue other home medications as previously prescribed. Follow up: PCP 3-5 days Please call to schedule / confirm appointments Physical Exam: GEN: Alert, oriented, NAD CV: Regular rate and rhythm, no edema Pulm: Nonlabored respirations on room air, clear bilaterally ABD: soft, no tenderness, nondistended Vital Signs/Physical Exam: Temp Pulse Resp BP Pulse Ox 97.0 F 77 100 H 130/62 95 01/17/24 04:00 01/17/24 04:00 01/17/24 04:00 01/17/24 04:00 01/17/24 04:00 Laboratory Data at Discharge: WBC 6.10 thou/uL (4.3-10.9) 01/17/24 06:23 Hgb 11.9 g/dL (12.0-15.0) L 01/17/24 06:23 Hct 36.3 % (36.0-45.0) 01/17/24 06:23 Plt Count 263 thou/uL (152-406) 01/17/24 06:23 Sodium 139 mEq/L (136-145) 01/17/24 06:23 Potassium 3.5 mEq/L (3.5-5.1) 01/17/24 06:23 BUN 5 mg/dL (7-18) L 01/17/24 06:23 Creatinine 0.53 mg/dL (0.55-1.02) L 01/17/24 06:23 Glucose 95 mg/dL (74-106) 01/17/24 06:23 Phosphorus 2.8 mg/dL (2.5-4.9) 01/16/24 06:09 Magnesium 2.1 mg/dL (1.6-2.4) 01/17/24 06:23 Total Bilirubin 0.6 mg/dL (0.2-1.0) 01/16/24 06:09 AST 13 U/L (15-37) L 01/16/24 06:09 ALT 20 U/L (13-56) 01/16/24 06:09 Alkaline Phosphatase 55 U/L (45-117) 01/16/24 06:09 Lipase 30 U/L (13-75) 01/15/24 18:41 Home Medications: Aspirin [Aspirin EC] 81 mg PO DAILY 08/23/23 Cholecalciferol (Vitamin D3) [Vitamin D 1000 Iu Tab*] 2,000 iu PO DAILY 08/23/23 Simvastatin 10 mg PO DAILY 08/23/23 hydroCHLOROthiazide [Hydrochlorothiazide] 25 mg PO DAILY 08/23/23 Cefpodoxime Proxetil 100 mg PO BID 5 Days #10 tab 01/17/24 New Medications: Cefpodoxime Proxetil 100 mg PO BID 5 Days #10 tab Physician Discharge Instructions: Physician discharge instructions: Patient presents with intractable nausea/vomiting, dysuria and urinary frequency secondary to UTI. She reports being seen in office prior to admission and was told she was diagnosed with a UTI. CT abdomen noted some distal esophageal wall thickening, right inguinal hernia otherwise negative. Urine culture grew near rondon-sensitive E. coli only resistant to Ampicillin/Bactrim. Intermediate resistance to ancef. She received 2 days of IV rocephin while hospitalized and had improvement of her symptoms. Patient is to complete 5 more days of oral cefpodoxime on discharge for a total of 1 week antibiotic course. Nausea/vomiting self-resolved shortly after admission. Patient was able to tolerate diet without issues on day of discharge. Patient was feeling better, nausea/vomiting resolved, urinary symptoms improved, afebrile > 24 hours and was deemed stable for discharge. Medications: Cefpodoxime twice daily for 5 days (start 01/17 morning) Continue other home medications as previously prescribed. Follow up: PCP 3-5 days Please call to schedule / confirm appointments [facility] [address] Deputy Clerk Call Joceline Ciro at [phone] for questions or concerns after discharge. Expect a call within 1-2 business days of discharge. Alternate: Rosanne Nur at Followup: Vance Pedro, DO [Primary Care Provider] - 1-2 Weeks Time spent managing pt's care (in minutes): 45
[2024-01-17 08:36] VITALS: BP 144/70; TEMP 98.1
[2024-01-17 09:20] VITALS: O2SAT 96
== END 2024-01-17 10:55 | disposition home or self-care (01) | DRG 690 ==
LOC: ER 16:41 → ERHOLD 20:49 → 4TH 22:04
PROVIDERS: ADMIT Family Medicine; ATTEND Hospitalist
DX: N39.0 Urinary tract infection, site not specified (principal); E87.1 Hypo-osmolality and hyponatremia; Z16.11 Resistance to penicillins; Z16.29 Resistance to other single specified antibiotic; E78.00 Pure hypercholesterolemia, unspecified; I10 Essential (primary) hypertension; E86.0 Dehydration; K40.90 Unilateral inguinal hernia, without obstruction or gangrene, not specified as recurrent; B96.20 Unspecified Escherichia coli [E. coli] as the cause of diseases classified elsewhere; Z66 Do not resuscitate; Z88.5 Allergy status to narcotic agent; Z88.6 Allergy status to analgesic agent; Z79.899 Other long term (current) drug therapy; Z90.49 Acquired absence of other specified parts of digestive tract; Z90.710 Acquired absence of both cervix and uterus
CPT/HCPCS: 36415; 71045; 74177; 80048; 80053; 80076; 81001; 83605; 83690; 83735; 84100; 84484; 85025; 87040; 87077; 87086; 87088; 87186; 93005; 94760; 96361; 96374; 96375; 99285; J0696; J2405; J7030; J7040; Q9967